=== PATIENT | female | born 1970 | race Caucasian/White ===

== ENCOUNTER → 2021-09-07 13:58 | Outpatient (CLI) | payer OTHER, SELFPAY ==
--- NOTE | ~2021-09-07 | MM_ITS ---
EXAMINATION: MM screening [facility] BI w jerome HISTORY: Screening TECHNIQUE: Craniocaudal and mediolateral oblique 3-D tomosynthesis images were obtained and synthetic 2-D images were generated. CAD analysis was submitted and interpreted. COMPARISON: Comparison to multiple prior studies sequentially, with oldest reviewed study dated 07/2015. BREAST PARENCHYMAL COMPOSITION: There are scattered areas of fibroglandular density. FINDINGS: There is no evidence of suspicious mass, calcification, or architectural distortion to sugg est malignancy in either breast. There has been no suspicious interval change. IMPRESSION: 1. No mammographic evidence of malignancy. 2. Recommend routine screening mammography in one year. BI-RADS Category 1: Negative Reviewed, dictated and finalized at location A.
== END ==
PROVIDERS: Visit Provider Obstetrics & Gynecology
DX: Z12.31 Encounter for screening mammogram for malignant neoplasm of breast (principal)
CPT/HCPCS: 77063; 77067

== ENCOUNTER 2024-09-10 10:09 | Outpatient (CLI) | payer OTHER, SELFPAY ==
--- NOTE | ~2024-09-10 | MM_ITS ---
EXAMINATION: MM screening [facility] w jerome HISTORY: Screening TECHNIQUE: Craniocaudal and mediolateral oblique 3-D tomosynthesis images were obtained and synthetic 2-D images were generated. CAD analysis was submitted and interpreted. COMPARISON: Comparison to multiple prior studies sequentially, with oldest reviewed study dated 02/26. BREAST PARENCHYMAL COMPOSITION: Dense: The breasts are heterogeneously dense, which may obscure small masses FINDINGS: There is no evidence of suspicious mass, calcification, or architectural distortion to sugg est malignancy in either breast. There has been no suspicious interval change. IMPRESSION: 1. No mammographic evidence of malignancy. 2. Recommend routine screening mammography in one year. BI-RADS Category 1: Negative Reviewed, dictated and finalized at location B. [employer]
== END 2024-09-10 10:10 | disposition home or self-care (01) ==
LOC: MICIMG 10:10
PROVIDERS: PCP Nurse Practitioner Family; Visit Provider Obstetrics & Gynecology
DX: Z12.31 Encounter for screening mammogram for malignant neoplasm of breast (principal)
CPT/HCPCS: 77063; 77067

== ENCOUNTER 2025-08-13 15:00 | Emergency (ER) | payer OTHER, SELFPAY ==
--- NOTE | 2025-08-13 15:06 | ED.EYEPROB ---
HPI - Eye Problem General Chief complaint: Eye Problems Stated complaint: Left eye Time Seen by Provider: 08/13/25 15:06 Source: patient Mode of arrival: ambulatory Limitations: no limitations History of Present Illness HPI Narrative: 54 y/o female presented for c/o left eye irritation. Onset yesterday. States she suddenly felt a sharp stabbing in the eye. Since then she has had redness, frequent tearing, and light sensitivity. She removed her contact lenses last night and has kept them out. Endorses mild blurry vision today. Used lubricating eye drops. Rates pain 6/10. Pt wears daily contact lenses, endorses compliance with changing them and denies sleeping in them. Reports eye ulcer a few months ago. MD chief complaint: eye pain Related Data Home Medications ?Medication ?Instructions ?Recorded ?Confirmed ?Last Taken ?Type fluticasone propionate 50 1 spray intranasal DAILY 01/09/24 07/08/25 Unknown History mcg/actuation nasal spray,suspension (Flonase Allergy Relief) loratadine 5 mg/5 mL oral solution 5 ml PO ONCE 01/09/24 07/08/25 Unknown History (Claritin) Allergies Allergy/AdvReac Type Severity Reaction Status Date / Time Penicillins Allergy Unknown Dizziness Verified 07/08/25 08:40 kiwi AdvReac Mild Swelling Uncoded 07/08/25 08:40 Review of Systems Review of Systems: CONSTITUTIONAL: Denies body aches, fever, chills EYES:Endorses redness and pain to left eye, FB sensation, photophobia Denies visual changes or swelling ENT: Denies rhinorrhea, congestion, sore throat, or otalgia. CARDIOVASCULAR: Denies chest pain, palpitations SKIN: Denies rash, itching, or wounds. MUSCULOSKELETAL: Denies back pain, joint pain, or myalgia. NEUROLOGIC: Denies headache, numbness, tingling, or weakness. All systems reviewed & are unremarkable except as noted in HPI and below PMFSH Past Medical History Medical History Screening mammogram, encounter for Fibromyalgia Psoriatic arthritis Rheumatoid arthritis Irritable bowel Heart & renal disease, hypertensive benign with chronic kidney disease GERD (gastroesophageal reflux disease) Arthritis Seasonal allergies Surgical History Surgical History Hx of dilation and curettage History of cholecystectomy H/O: hysterectomy H/O tubal ligation Family History Family History Father Alcoholism Hypertension Mother Diabetes mellitus Depression Heart valve problem Cerebrovascular accident Social History Social History Social History: caffeiune- coffee Smoking status: Never smoker Second hand tobacco smoke exposure: No Alcohol intake: current Alcohol use details: cocktail 2 a month Substance use: former Substance use type: does not use Do You Feel Safe in your Home?: Yes Lack of Transportation: No Lack of Food: Never True Current Housing: I Have Housing Concerned About Future Housing: No Difficulty Paying Gas/Electric Bills: No Difficulty Paying for Meds: No Currently Unemployed: No Education: Trade/Vocational Certificate Difficulty w/ Childcare or Family Care: No Living arrangements: with family Additional living arrangements comments: with spouse Occupation/Education: occupation Additional occupation/education comments: self employee Gender identity (if verbalized by the patient): Female Sexual Orientation (if Verbalized by the Patient): Straight or Heterosexual Spiritual care concerns: No Agree to blood products: No Comments At time of signature, I have reviewed and agree with nursing past medical, surgical, social and family history unless otherwise noted. Please see nursing chart for further information. There is no relevant family history pertinent to the presenting complaint Exam Narrative: GENERAL: Well-appearing HEAD: Normocephalic, atraumatic. EYES: Left conjunctival injection, frequent tearing. No purulent drainage, No eye lid swelling/redness, no stye. PERRLA, EOMI. Lid eversion shows no foreign body ENT: Mucous membranes pink and moist. SKIN: Warm, dry, no rash. Normal skin turgor. NEURO: No focal deficits. Alert and oriented x3 PSYCH: Normal affect. Course Course Emergency Course: Patient is aware of diagnosis, understands and agrees to treatment plan. Anticipatory guidance given. Patient agrees to follow-up as directed and is aware of reasons to seek care at the emergency department. Portions of this record may have been created with voice recognition software Level of Care: Express Care Visit MDM - Eye Problem MDM Narrative Medical decision making narrative: Discussed physical exam findings; will treat for corneal ulcer as she is contact lens wearer, though not detected on shah lamp exam. Reviewed RX. Advised supportive measures and signs/symptoms to go to the ER. Pt is appropriate for outpt treatment and f/u. Differential Diagnosis Differential diagnosis: Likely corneal abrasion, conjunctivitis, acute iritis and other Discharge Plan Discharge Clinical Impression: Acute left eye pain Patient Disposition: Home Condition: Stable Instructions: Antibiotic Form, Corneal Ulcer (ED) Additional Instructions: You can wear sunglasses or stay in low light to avoid light sensitivity. Do not touch or rub your eye. Use over the counter lubricating eye drops (Blink) as needed for irritation Do not wear contact lenses until issue is resolved. Avoid eye make up, false lashes until resolved. You may take Tylenol or ibuprofen for pain Follow-up with your emg technician if condition is not improving in 2 days. Go to the ER for any worsening symptoms or concerns [facility] [phone] [facility] [phone] [facility] [phone] [facility] [phone] Patient Language: Polish Prescriptions: New ofloxacin 0.3 % drops See Rx Instructions .ROUTE .COMPLEX Qty: 10 1RF Rx Instructions: put 2 drops into left eye every 30 minutes while you are awake, then every 4 hours after going to sleep x2 days. Then 2 drops every hour while awake x6 days. Then 2 drops every 6 hours until cure. ketorolac 0.5 % drops 1 drp LEFT EYE Q6H PRN (Reason: pain) Qty: 3 0RF No Action fluticasone propionate [Flonase Allergy Relief] 50 mcg/actuation spray,suspension 1 spray intranasal DAILY Rx Instructions: administer into each nostril loratadine [Claritin] 5 mg/5 mL solution 5 ml PO ONCE Mounjaro 15 mg/0.5 mL pen injector See Rx Instructions .ROUTE .COMPLEX Qty: 2 2RF Dose Instruction: INJECT 15MG SUBCUTANEOUSLY EVERY WEEK Rx Instructions: INJECT 15MG SUBCUTANEOUSLY EVERY WEEK sulfasalazine 500 mg tablet 500 mg PO BID Qty: 180 0RF Rx Instructions: give with food (meal/snack). start taking once daily for one month then move to twice daily. levothyroxine 150 mcg tablet 150 mcg PO DAILY Qty: 90 1RF Follow-up/Referrals: Destiney Romo, SEALING AND CANCELING MACHINE OPERATOR-C [Primary Care Provider, [facility]] Time of Disposition: 15:41
[2025-08-13 15:11] VITALS: BP 153/74; PULSE 76; RESP 18; TEMP 36.7; O2SAT 100
[2025-08-13] MEDS: TETRACAINE HCL 0.5% OPHTH SOLN 4 ML BTL AFFCTD EYE (15:26)
[2025-08-13] MEDS: DACRIOSE EYE IRRIGATION 118 ML BOTTLE AFFCTD EYE (15:26)
[2025-08-13] MEDS: FLUORESCEIN SOD 1 MG/STRIP AFFCTD EYE (15:27)
== END 2025-08-13 15:44 | disposition home or self-care (01) ==
PROVIDERS: Emergency Provider Nurse Practitioner Family; PCP Nurse Practitioner Family
DX: H57.12 Ocular pain, left eye (principal); M79.7 Fibromyalgia; L40.50 Arthropathic psoriasis, unspecified; M06.9 Rheumatoid arthritis, unspecified; K21.9 Gastro-esophageal reflux disease without esophagitis; M19.90 Unspecified osteoarthritis, unspecified site
CPT/HCPCS: 99213; A9270; G0463